=== PATIENT | male | born 1950 | race Caucasian/White ===

== ENCOUNTER 2017-08-24 11:29 | Emergency (ER) | payer OTHER ==
--- NOTE | 2017-08-24 12:10 | EDPHY ---
H & P HPI/ROS: CHIEF COMPLAINT: Diarrhea HISTORY OF PRESENT ILLNESS: This is a 67-year-old male with a history of hypertension who presents with 4 days of diarrhea. He has been stooling 6 times daily. Over the last 3 and half days he has taken a total of 8 Imodium, 1 this morning. This has helped but he has continued with diarrhea. He has not been had fever and has been checking his temperature. He has not seen any blood in his stool. His intake is diminished. He reports some abdominal "pressure" on the left lower abdomen. He denies nausea or vomiting. He reports an episode of colitis many many years ago, over 20 years ago. He has had colonoscopies, one of which showed colitis, the last 2 being normal. REVIEW OF SYSTEMS: A ten point review of systems was performed and is negative with the exception of the items mentioned in the HPI. Past medical history: Hypertension Past surgical history: Social history: He is retired from warehouse work. He does not use tobacco products or alcohol. He lives alone. General Appearance: Alert. Vital signs reviewed. Temperature 38.2degrees, heart rate 104, blood pressure 147/106. Eyes: Pupils equal and round, no conjunctival injection, no discharge. Anicteric. ENT, Mouth: Mucous membranes are moist, no oropharyngeal erythema or edema. Neck: No lymphadenopathy, supple. Respiratory: Lungs are clear to auscultation; no wheezes, rales, or rhonchi. Cardiovascular: Regular rate and rhythm; no murmur, rub, or gallop. Gastrointestinal: Abdomen is soft with tenderness in the left lower quadrant, no guarding, no masses or organomegaly, bowel sounds normal. Skin: Warm and dry, no rashes on exposed skin, normal color. Back: Nontender to palpation over the thoracolumbar spine. No CVAT. Extremities: No lower extremity edema, no calf tenderness or swelling. Neurological: Alert and oriented. Moving all four extremities easily and equally. Psychiatric: Normal affect. - Personal History Tetanus Vaccine Date: <10 years - Medical/Surgical History Hx Asthma: No Hx Chronic Respiratory Disease: No Hx Diabetes: No Hx Cardiac Disease: No Hx Renal Disease: No Hx Cirrhosis: No Hx Alcoholism: No Hx HIV/AIDS: No Hx Splenectomy or Spleen Trauma: No Other PMH: multiple previous surgeries - Social History Smoking Status: Never smoked Constitutional: Initial Vital Signs Temperature (C) 38.2 C 08/24/17 12:11 Heart Rate 104 H 08/24/17 12:11 Respiratory Rate 16 08/24/17 12:11 Blood Pressure 147/106 H 08/24/17 12:11 O2 Sat (%) 94 08/24/17 12:11 O2 Delivery Mode Room Air Allergies/Adverse Reactions: amoxicillin [Amoxicillin] Allergy (Intermediate, Verified 08/28/15 10:11) Rash clindamycin Allergy (Verified 08/28/15 10:12) oxycodone HCl [From Percocet] Allergy (Verified 08/28/15 10:11) Home Medications: Medication Instructions Recorded Aspirin 08/28/15 Cefdinir [Omnicef (RX)] 300 mg PO BID 7 Days cap 08/28/15 Medical Decision Making ED Course/Re-evaluation: 67-year-old male with 4 days of diarrhea and now fever. He is given Tylenol 650 mg orally. Received 1 L IV normal saline. CBC shows an elevated white blood cell count left shift. He has mild to moderate left lower quadrant tenderness without guarding. He has not seen blood in his stool. He received 1 L IV normal saline. He was given Tylenol 650 mg for fever. He did not have diarrhea while in the emergency department. He was re-examined at 2:00 p.m.. At that time he has mild left lower quadrant tenderness, no guarding. He said that he feels better. He has been up to urinate a couple of times and does not feel dizzy or lightheaded. He is comfortable returning home. He was offered a prescription for Lomotil but would like to continue with Imodium. We discussed the possibility of this being diverticulitis. He does not want undergo CT scanning of the abdomen and pelvis for diagnosis. He is not interested in starting antibiotics to treat diverticulitis. He would like to continue with Imodium and force fluids at home. He remained febrile, declined additional anti-pyretics. He tells me that he came to the ED after being advised to do so by a triage nurse that he called. He feels comfortable returning home and continuing to care for himself. He will follow up with his primary care physician. He is aware that he was hypertensive in the emergency department. He will have this rechecked with his primary care physician, whom he saw last week. He is compliant with his antihypertensive medication, Dyazide. He was previously on propranolol but this was discontinued because he was intermittently hypotensive. We reviewed the danger signs that should prompt him to return to the emergency department. Differential Diagnosis: I considered a ddx that includes but is not limited to bacterial/viral/ protozoal diarrhea, diverticulitis, inflammatory bowel disease, irritable bowel disease. - Data Points Laboratory Results: Laboratory Results 08/24/17 13:00 08/24/17 13:00 Medications Given: Discontinued Medications Acetaminophen (Tylenol) 650 mg PO EDNOW ONE Stop: 08/24/17 13:10 Last Admin: 08/24/17 13:20 Dose: 650 mg Acetaminophen (Tylenol) 325 mg PO EDNOW ONE Stop: 08/24/17 14:28 Last Admin: 08/24/17 14:28 Dose: Not Given Sodium Chloride (Ns) 500 mls @ 1,000 mls/hr IV ONCE ONE PRN Reason: Protocol Stop: 08/24/17 13:27 Last Admin: 08/24/17 13:00 Dose: 500 mls Departure - Departure Disposition: Home, Routine, Self-Care Clinical Impression: Diarrhea Qualifiers: Diarrhea type: unspecified type Qualified Code(s): R19.7 - Diarrhea, unspecified Condition: Good Instructions: Loperamide (By mouth), Acute Diarrhea (ED) Additional Instructions: Be sure to drink enough water. If you have fever, worsening abdominal pain, continued diarrhea--you should be re-examined. Follow up with Dr. Gong if you aren't improving, return to the ED if you are worse. You are being given a specimen container that you can collect diarrheal stool in. If you do so, we need to take the sample to the emergency department at [facility]. He the sample can then be analyzed to determine what type of bacteria or virus might be causing your diarrhea. As we discussed, I am also concerned about the possibility of this being diverticulitis. Referrals: Rosalee Gong MD [Primary Care Provider] - As per Instructions
[2017-08-24 12:14] VITALS: O2SAT 94
[2017-08-24] MEDS ORDERED: NS 500 ML IV ONE (12:58)
[2017-08-24] MEDS ORDERED: ACETAMINOPHEN 325 MG TAB PO ONE ×2 (13:09→14:27)
[2017-08-24 13:14] LABS: % IMMATURE GRANULYOCYTES 0.2 % (0.0-1.1); ABSOLUTE IMMATURE GRANULOCYTES 0.03 10^3/uL (0.00-0.10); ADD DIFF? NO; ADD MORPH? NO; ADD SCAN? NO; ATYPICAL LYMPHOCYTE FLAG 0 (0-99); FRAGMENT RBC FLAG 0 (0-99); HEMATOCRIT 49.7 % (40.0-51.0); HEMOGLOBIN 16.6 g/dL (13.7-17.5); LEFT SHIFT FLG 0 (0-99); LIPEMIA HEMOLYSIS FLAG 80 (0-99); MEAN CELL HEMOGLOBIN 28.1 pg (27.9-34.1); MEAN CELL HEMOGLOBIN CONCENTR. 33.4 g/dL (32.4-36.7); MEAN CELL VOLUME 84.2 fL (81.5-99.8); MEAN PLATELET VOLUME 11.1 fL (8.7-11.7); PLATELET CLUMPS FLAG 0 (0-99); PLATELET COUNT 163 10^3/uL (150-400); RED CELL DISTRIBUTION WIDTH 16.6 % (11.5-15.2)
[2017-08-24 13:17] LABS: CHLORIDE 98 mEq/L (97-110); POTASSIUM 3.8 mEq/L (3.5-5.2); SODIUM 137 mEq/L (134-144)
[2017-08-24 13:42] LABS: ANION GAP 11 mEq/L (8-16); CALCIUM 8.7 mg/dL (8.5-10.4); CARBON DIOXIDE 28 mEq/l (22-31); CREATININE 0.9 mg/dL (0.7-1.3); GLOMERULAR FILTRATION RATE > 60; GLUCOSE 84 mg/dL (70-100)
[2017-08-24 14:31] VITALS: BP 133/79; PULSE 84; RESP 18; TEMP 101.1
== END 2017-08-24 14:28 | disposition home or self-care (01) ==
LOC: CED 11:29
PROC: 3E0337Z Introduction of Electrolytic and Water Balance Substance into Peripheral Vein, Percutaneous Approach (ICD-10-PCS; principal; 2017-08-24)
DX: R19.7 Diarrhea, unspecified (principal); I10 Essential (primary) hypertension; E86.9 Volume depletion, unspecified
CPT/HCPCS: 80048-PO; 85025-PO

== ENCOUNTER → 2018-05-20 | Outpatient (CLI) | payer OTHER | LOC: CIMAGING 09:55 | PROVIDERS: ATTEND Internal Medicine | DX: M77.32 Calcaneal spur, left foot (principal) | CPT/HCPCS: 73650-PO ==